=== PATIENT | female | born 1990 | race American Indian/Alaskan Native ===

== ENCOUNTER 2017-09-03 11:17 | Emergency (ER) | payer OTHER ==
[2017-09-03 11:34] VITALS: BP 120/74
[2017-09-03] MEDS ORDERED: MOTRIN PO ONE (13:17)
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
== END 2017-09-03 14:16 | disposition home or self-care (01) ==
LOC: ED 11:17
DX: S56.912A Strain of unspecified muscles, fascia and tendons at forearm level, left arm, initial encounter (principal); V49.09XA Driver injured in collision with other motor vehicles in nontraffic accident, initial encounter; Y93.89 Activity, other specified; Y99.8 Other external cause status; Y92.488 Other paved roadways as the place of occurrence of the external cause